=== PATIENT | male | born 1950 ===

== ENCOUNTER 2017-08-30 18:27 | Observation (INO) ==
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
--- NOTE | 2017-08-30 19:43 | XRay Report ---
XR hip 2v w pelvis RT Indication: Pain after injury Comparison: None available Findings: No evidence of fracture seen. The alignment of the joints appears normal. Mild acetabular degenerative change is present. No soft tissue abnormality is seen. Impression: No evidence of acute injury demonstrated PROCEDURE INTERPRETED AT [facility] DEPARTMENT OF RADIOLOGY Final Report Signed by: Dr. Pantera Cornejo
--- NOTE | 2017-08-30 19:46 | XRay Report ---
XR humerus LT, XR forearm LT, XR elbow 2V LT Indication: Pain after injury Comparison: None available Findings: No evidence of fracture seen. There is posterior and lateral dislocation of the radius and ulna relative to the distal humerus. There is mild proximal migration of the ulna and radius. Osseous fracture fragment is seen in the soft tissues of posteriorly and laterally, origin site is indeterminate No degenerative change is present. No soft tissue abnormality is seen. Impression: Fracture dislocation of the elbow as described above. PROCEDURE INTERPRETED AT [facility] DEPARTMENT OF RADIOLOGY Final Report Signed by: Dr. Pantera Cornejo
[2017-08-30] MEDS ORDERED: PROPOFOL 200 MG/20 ML VIAL IV ONE (20:20)
[2017-08-30] MEDS ORDERED: ONDANSETRON 4 MG/2 ML VIAL IV PRN (21:18)
[2017-08-30] MEDS ORDERED: HYDROmorphone 2 MG/1 ML VIAL IV PRN (21:18)
[2017-08-30] MEDS ORDERED: SODIUM CHLORIDE 0.9% 1,000 ML IV SCH (21:30)
[2017-08-30 21:41] LABS: Basophils % 0.1 % (0.0-0.8); Eosinophils # 0.1 10*3/uL (0.0-0.87); Eosinophils % 1.1 % (0.00-10.9); Immature Granulocytes % 0.4 %; Immature Granulocytes Absolute 0.05 #; Lymphocytes % 8.3 % (21.2-54.2); Mean Corpuscular HGB Conc 34.2 GM/DL (32-36); Mean Corpuscular Hemoglobin 29 PG (27-34); Mean Platelet Volume 9.9 FL (9.6-12.0); Monocytes # 0.6 10*3/uL (0.11-0.8); Monocytes % 5.5 % (1.7-12.7); Neutrophils # 9.7 10*3/uL (1.4-7.4); Neutrophils % 84.6 % (38.7-73.9); Platelet Count 214 T/CUMM (130-400); Red Blood Count 4.42 MC/CUMM (3.8-5.5); White Blood Count 11.5 T/CUMM (4-12)
[2017-08-30 21:55] LABS: PT Patient Result 10.6 SECS; Partial Thromboplastin Time 28.6 SECS (0-40)
--- NOTE | 2017-08-30 22:12 | XRay Report ---
Exam: XR elbow 2V RT Date: 08/30/2017 8:41 PM Indication: Post reduction Comparison: Earlier film from 08/30/2017 at 7:22 PM. Technical: AP lateral Findings: Examination reveals calcifications present along the posterior aspect of the olecranon. The distal humerus reveals no obvious fracture clearly demonstrated. There is calcification along the medial and lateral aspect of the arm with soft tissue swelling. These findings suggest either heterotopic calcification or avulsion injuries of the epicondyles not otherwise clarified. The radius and ulna have been repositioned. Joint effusion is present. Impression: 1. Joint effusion with a repositioning of the joint with heterotopic calcifications or avulsions present. 2. Calcific tendinopathy of the olecranon distal triceps tendon insertion. PROCEDURE INTERPRETED AT [facility] DEPARTMENT OF RADIOLOGY Final Report Signed by: Dr. Mahamed Tran
--- NOTE | 2017-08-30 22:13 | XRay Report ---
Exam: XR chest 1V portable Date: 08/30/2017 8:42 PM Indication: Respiratory preop evaluation Comparison: None Technical: AP chest Findings: Cardiomegaly is present with granuloma changes present in the right midlung zone and perihilar regions. External cardiac leads are present. No pneumothorax. Bony structures reveal no acute findings. No obvious acute infiltrates or effusions present. Impression: 1. Cardiomegaly without decompensation 2. Underlying granuloma changes. PROCEDURE INTERPRETED AT [facility] DEPARTMENT OF RADIOLOGY Final Report Signed by: Dr. Mahamed Tran
[2017-08-30 22:17] LABS: Albumin 3.9 G/DL (3.4-5.0); Bilirubin,Total 0.4 MG/DL (0.2-1.0); Osmolality,Calculated 282.4 MOS/KG (273-304); Potassium 4.1 MMOL/L (3.5-5.1); Total Protein 7.9 G/DL (6.4-8.3)
[2017-08-31 01:35] LABS: Apearance,Urine CLEAR (Clear); Bilirubin,Urine Negative (Negative); Blood, Urine Negative (Negative); Glucose,Urine (UA) 150 mg/dL (Negative); Ketones,Urine Negative (Negative); Mucus,Urine Occasional /LPF (Occasional); Nitrite,Urine Negative (Negative); Protein,Urine Negative; RBC,Urine <1 /HPF (0-4); Urine Color Yellow (Yellow); Urine Specific Gravity 1.014 (1.001-1.035); Urine Urobilinogen < 2.0 EU/DL (0.2-1.0); WBC,Urine <1 /HPF (0-6)
[2017-08-31] MEDS ORDERED: GLUCAGON 1 MG VIAL IM PRN (07:45)
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
[2017-08-31 08:48] VITALS: BP 161/89
--- NOTE | 2017-09-04 21:45 | Order Completion Report ---
See report scanned to EMR
== END 2017-08-31 11:18 | disposition home or self-care (01) ==
LOC: EDBD → EDUNIT# → N.EDINP 18:27 → N.ED 18:27 → N.3E 22:10
PROVIDERS: ADMIT Orthopaedic Surgery; ATTEND Orthopaedic Surgery

== ENCOUNTER 2018-08-17 04:41 | Observation (INO) ==
[2018-08-17] MEDS ORDERED: PIPERACILLIN/TAZOBACTAM 3,375 MG in SODIUM CHLORIDE 0.9% 100 ML IV STA (05:35)
[2018-08-17] MEDS ORDERED: ONDANSETRON 4 MG/2 ML VIAL IV PRN ×2 (05:35→14:46)
[2018-08-17] MEDS: DEXTROSE 5% LACTATED RINGERS 1,000 ML IV SCH ×3 (06:02→21:52)
[2018-08-17] MEDS ORDERED: MORPHINE 4 MG/1 ML VIAL IV PRN (08:27)
[2018-08-17] MEDS: PANTOPRAZOLE 40 MG TABLET PO SCH (08:52)
[2018-08-17] MEDS ORDERED: BUPIVACAINE 0.25% /EPI 10 ML VIAL ONE (12:28)
[2018-08-17] MEDS ORDERED: TISSUE ADHESIVE 1 EACH APPLICATOR TOP ONE (12:28)
[2018-08-17] MEDS ORDERED: LIDOCAINE 1%/EPI INJ 20 ML VIAL ONE (12:28)
[2018-08-17] MEDS ORDERED: ceFAZolin 1,000 MG in SYRINGE 1 EACH IV ONE (12:28)
[2018-08-17] MEDS ORDERED: ACETAMINOPHEN 325 MG TABLET PO PRN (14:46)
[2018-08-17] MEDS ORDERED: KETOROLAC 30 MG/1 ML VIAL ONE (14:57)
[2018-08-17] MEDS ORDERED: MIDAZOLAM 2 MG/2 ML VIAL ONE (15:03)
[2018-08-17] MEDS ORDERED: PROPOFOL 200 MG/20 ML VIAL IV ONE (15:03)
[2018-08-17] MEDS ORDERED: SEVOFLURANE 1 UNIT/15 MINUTE INH ONE (15:03)
[2018-08-17] MEDS ORDERED: GLYCOPYRROLATE 0.4 MG/2 ML VIAL ONE (15:04)
[2018-08-17] MEDS ORDERED: fentaNYL 100 MCG/2 ML VIAL ONE ×2 (15:04)
[2018-08-17] MEDS ORDERED: ONDANSETRON 4 MG/2 ML VIAL ONE (15:04)
[2018-08-17] MEDS ORDERED: ACETAMINOPHEN 1,000 MG/100 ML VIAL IV ONE (15:04)
[2018-08-17] MEDS ORDERED: NEOSTIGMINE 10 MG/10 ML VIAL ONE (15:05)
[2018-08-17] MEDS ORDERED: ROCURONIUM 100 MG/10 ML VIAL IV ONE (15:05)
[2018-08-18] MEDS: DEXTROSE 5% LACTATED RINGERS 1,000 ML IV SCH (06:21)
[2018-08-18] MEDS ORDERED: PANTOPRAZOLE 40 MG TABLET PO SCH (09:00)
[2018-08-18] MEDS: PANTOPRAZOLE 40 MG TABLET PO SCH (09:09)
[2018-08-18 11:19] VITALS: BP 107/71
== END 2018-08-18 13:49 | disposition home or self-care (01) ==
LOC: EDBD → EDUNIT# → N.ED 04:41 → INTOOBSV 05:35 → N.EDINP 05:35 → N.3E 06:25
PROVIDERS: ADMIT Surgery; ATTEND Surgery
PROC: LAPCHOL (2018-08-17 13:24)